=== PATIENT | male | born 1935 | race Caucasian/White ===

== ENCOUNTER → 2017-02-21 08:46 | Emergency (ER) | payer MEDICARE, BC ==
[~2017-02-21 08:46] MED LIST: Ibuprofen TAB* 600 MG PO ONE; Morphine INJ* 2 MG/ML 1 ML SYRINGE (TWO MG - NEW SYRINGE VERSION) IV ONE
[2017-02-21 08:54] VITALS: BP 144/94
--- NOTE | 2017-02-21 10:08 | RAD ---
INDICATION: Left knee pain. TECHNIQUE: 4 views of the left knee were obtained. FINDINGS: There is soft tissue swelling anterior to the patella. The bones are normal alignment. No joint effusion or fracture is seen. There is mild to moderate osteoarthritic change in the medial and patellofemoral compartments. IMPRESSION: 1. ANTERIOR SOFT TISSUE SWELLING. 2. MILD TO MODERATE OSTEOARTHRITIC CHANGE.
[2017-02-21 10:51] LABS: Hematocrit 39 % (42-52); Hemoglobin 12.9 g/dl (14.0-18.0); Mean Corpuscular HGB Conc 34 g/dl (31-36); Mean Corpuscular Hemoglobin 33 pg (27-31); Mean Corpuscular Volume 98 fL (80-94); Mean Platelet Volume 9 um3 (7.4-10.4); Red Blood Count 3.94 10^6/ul (4.0-5.4); Red Cell Distribution Width 13 % (10.5-15); White Blood Count 9.4 10^3/ul (3.5-10.8)
[2017-02-21 11:05] LABS: Albumin 3.6 g/dL (3.2-5.2); BUN/Creatinine Ratio 12.4 (8-20); Calcium 8.7 mg/dL (8.6-10.3); EGFR African American 105.5 (>60); Globulin 2.5 g/dL (2-4); Total Bilirubin 0.9 mg/dL (0.2-1.0); Total Protein 6.1 g/dL (6.4-8.9); Uric Acid 6.6 mg/dL (4.4-7.6)
--- NOTE | 2017-02-21 11:29 | ED ---
Lower Extremity - HPI Summary HPI Summary: 81 male presents with left knee pain that began 1-2 days ago and has been worsening. States it is also warm and swollen. Denies bruising, redness or any recent injury. Has not taken any medication for the pain. States pain is worse at rest or on palpation. Better with walking and movement. Has never had anything like this before. No Hx of gout. No numbness/tingling. Has not been bit by tick that he knows of, no other complaints at this time. No other joint aches. No PMHx. States if of course is feeling better than it did this morning, since he's been here. Able to bear weight and walk without difficulty. - History of Current Complaint Chief Complaint: EDExtremityLower Stated Complaint: LT KNEE PAIN Time Seen by Provider: 02/21/17 09:44 Hx Obtained From: Patient Mechanism Of Injury: Unknown Onset/Duration: Worse Since Severity Initially: Mild Severity Currently: Moderate Pain Intensity: 7 Pain Scale Used: 0-10 Numeric Timing: Constant Location: Is Discrete @ - left knee Character Of Pain: Sharp, Aching Associated Signs And Symptoms: Positive: Swelling, Knee Pain, Other - hot to touch Aggravating Factor(s): Other - rest, palpation Alleviating Factor(s): Other - movement Able to Bear Weight: Yes - Allergies/Home Medications Allergies/Adverse Reactions: Allergies Allergy/AdvReac Type Severity Reaction Status Date / Time Unable to Obtain Allergy Verified 02/21/17 08:51 PMH/Surg Hx/FS Hx/Imm Hx Cardiovascular History: Reports: Hx Hypercholesterolemia, Hx Hypertension, Other Cardiovascular Problems/Disorders - An aortic abnormality, unsure of dx Denies: Hx Myocardial Infarction Musculoskeletal History: Denies: Hx Osteoporosis Sensory History: Reports: Hx Contacts or Glasses Opthamlomology History: Reports: Hx Contacts or Glasses Infectious Disease History: Yes Infectious Disease History: Denies: Traveled Outside the [place] in Last 30 Days - Family History Known Family History: Positive: Cardiac Disease, Hypertension - Social History Alcohol Use: Occasionally Substance Use Type: Reports: None Smoking Status (MU): Former Smoker Type: Cigarettes Review of Systems Constitutional: Negative Cardiovascular: Negative Respiratory: Negative Positive: Arthralgia, Myalgia - left knee, Edema - left knee Skin: Negative All Other Systems Reviewed And Are Negative: Yes Physical Exam Triage Information Reviewed: Yes Vital Signs On Initial Exam: Initial Vitals Temp Pulse Resp BP Pulse Ox 97.7 F 80 17 144/94 98 02/21/17 08:46 02/21/17 08:46 02/21/17 08:46 02/21/17 08:46 02/21/17 08:46 Vital Signs Reviewed: Yes Appearance: Positive: Well-Appearing, No Pain Distress, Well-Nourished Skin: Positive: Warm, Skin Color Reflects Adequate Perfusion, Dry, Other - no ecchymosis, edema or sign of trauma. no erythema. hot to touch left knee. Negative: Cold, Numb, Cyanosis @, Pale, Erythema @ Head/Face: Positive: Normal Head/Face Inspection Eyes: Positive: Conjunctiva Clear ENT: Positive: Hearing grossly normal Neck: Positive: Supple, Nontender Respiratory/Lung Sounds: Positive: Clear to Auscultation, Breath Sounds Present. Negative: Rales, Rhonchi, Wheezes Cardiovascular: Positive: Normal, RRR, Pulses are Symmetrical in both Upper and Lower Extremities - 2+ pedal. Negative: Murmur, Rub Abdomen Description: Positive: Nontender, Soft Bowel Sounds: Positive: Present Musculoskeletal: Positive: Normal, Strength/ROM Intact, Pain @ - on palpation of anterior/lateral left knee, Edema Left - knee, mild when compared to right, Other - no ecchymosis, erythema or obvious deformity. warm to touch. Negative: Limited @, Interruption @ Neurological: Positive: Normal, Sensory/Motor Intact - normal, Alert, Oriented to Person Place, Time, NV Bundle Intact Distally, Normal Gait - Sakshi Coma Scale Coma Scale Total: 15 Diagnostics - Vital Signs Vital Signs Temp Pulse Resp BP Pulse Ox 02/21/17 08:46 97.7 F 80 17 144/94 98 - Laboratory Lab Results: Lab Results 02/21/17 02/21/17 Range/Units 10:35 10:35 WBC 9.4 (3.5-10.8) 10^3/ul RBC 3.94 L (4.0-5.4) 10^6/ul Hgb 12.9 L (14.0-18.0) g/dl Hct 39 L (42-52) % MCV 98 H (80-94) fL MCH 33 H (27-31) pg MCHC 34 (31-36) g/dl RDW 13 (10.5-15) % Plt Count 201 (150-450) 10^3/ul MPV 9 (7.4-10.4) um3 Neut % (Auto) 72.3 (38-83) % Lymph % (Auto) 17.5 L (25-47) % [place] % (Auto) 7.4 (1-9) % Eos % (Auto) 1.8 (0-6) % Baso % (Auto) 1.0 (0-2) % Absolute Neuts (auto) 6.8 (1.5-7.7) 10^3/ul Absolute Lymphs (auto) 1.6 (1.0-4.8) 10^3/ul Absolute Monos (auto) 0.7 (0-0.8) 10^3/ul Absolute Eos (auto) 0.2 (0-0.6) 10^3/ul Absolute Basos (auto) 0.1 (0-0.2) 10^3/ul Absolute Nucleated RBC 0 10^3/ul Nucleated RBC % 0 Sodium 136 (133-145) mmol/L Potassium 4.0 (3.5-5.0) mmol/L Chloride 106 (101-111) mmol/L Carbon Dioxide 26 (22-32) mmol/L Anion Gap 4 (2-11) mmol/L BUN 11 (6-24) mg/dL Creatinine 0.89 (0.67-1.17) mg/dL Est GFR ( Amer) 105.5 (>60) Est GFR (Non-Af Amer) 82.0 (>60) BUN/Creatinine Ratio 12.4 (8-20) Glucose 142 H (70-100) mg/dL Uric Acid 6.6 (4.4-7.6) mg/dL Calcium 8.7 (8.6-10.3) mg/dL Total Bilirubin 0.90 (0.2-1.0) mg/dL AST 15 (13-39) U/L ALT 15 (7-52) U/L Alkaline Phosphatase 86 (34-104) U/L Total Protein 6.1 L (6.4-8.9) g/dL Albumin 3.6 (3.2-5.2) g/dL Globulin 2.5 (2-4) g/dL Albumin/Globulin Ratio 1.4 (1-3) Result Diagrams: 02/21/17 10:35 02/21/17 10:35 Lab Statement: Any lab studies that have been ordered have been reviewed, and results considered in the medical decision making process. - Radiology left knee Xray Interpretation: Positive (See Comments) - 1. ANTERIOR SOFT TISSUE SWELLING. 2. MILD TO MODERATE OSTEOARTHRITIC CHANGE. Radiology Interpretation Completed By: Radiologist Lower Extremity Course/Dx - Course Course Of Treatment: xray obtained and showed joint effusion and some osteoarthritis. labs obtained, no sign of infection and normal uric acid. does appear to be anemic, unintentional findings. recommended eating iron rich foods and follow up lab work with PCP. not on blood thinners. appears patient may be suffering from gout versus joint effusion versus septic arthritis. Kojo bandage applied. Does not appear to need any draining at this time. Follow up ortho after trying symptomatic relief. Compression, rest, ice, elevate, refrain from use. NSAIDs. hold off on aspirin until d/c NSAIDs. Follow up pcp. Aware of worsening signs and symptoms to watch out for and return if occur. - Diagnoses Differential Diagnosis/HQI/PQRI: Positive: Arthritis, Contusion, Dislocation, Fracture (Closed), Gout, Infection, Septic Arthritis, Sprain, Strain Provider Diagnoses: Effusion of knee joint, left Discharge - Discharge Plan Condition: Stable Disposition: HOME Patient Education Materials: Swollen Knee Joint (ED), Osteoarthritis (ED) Referrals: Teagan Mistry MD [Primary Care Provider] - Ronny Platt MD [Medical Doctor] - Additional Instructions: Take ibuprofen 600mg every 6-8 hours for the next 3 days. Hold off on aspirin. Return to daily aspirin after. Make an appointment with orthopedics for further evaluation and imaging. Rest, ice, elevate and apply kojo bandage for compression. If symptoms worsen or do not improve please seek medical attention promptly, as discussed.
== END | disposition home or self-care (01) ==
LOC: ED 08:46
DX: M25.562 Pain in left knee (principal); M25.462 Effusion, left knee; R60.9 Edema, unspecified; Z87.891 Personal history of nicotine dependence
CPT/HCPCS: 36415; 80053; 84550; 85025; 99282; A9270-GY; J2270

== ENCOUNTER 2017-11-27 08:50 | Inpatient (IN) | payer MEDICARE, BC ==
--- NOTE | 2017-11-27 09:19 | ED ---
HPI Chest Pain - HPI Summary HPI Summary: This patient is an 82 year old M [facility] with a chief complaint of CP since 629. He was watering the garden and experienced CP , so he went inside. Pt started drinking coffee, which is when he experienced N/ V. He endorses the pain as dull currently. Took ASA last night. Endorses chronic peripheral edema. He denies SOB, lightheadedness. Denies nausea currently. PMHx HTN, ascending thoracic aneurysm. - History of Current Complaint Chief Complaint: EDChestPainROMI Time Seen by Provider: 11/27/17 09:05 Hx Obtained From: Patient Onset/Duration: Started Hours Ago, Still Present Timing: Constant, Lasting Hours Initial Severity: Moderate Current Severity: Moderate Pain Intensity: 7 Pain Scale Used: 0-10 Numeric Chest Pain Location: Diffuse - central chest Chest Pain Radiates: No Character: Dull/Aching Aggravating Factor(s): Exertion, Caffeine Alleviating Factor(s): Nothing Associated Signs and Symptoms: Positive: Chest Pain, Nausea, Vomiting, Edema. Negative: Shortness of Breath, Lightheadedness - Allergy/Home Medications Allergies/Adverse Reactions: Allergies Allergy/AdvReac Type Severity Reaction Status Date / Time No Known Allergies Allergy Verified 11/27/17 08:55 Home Medications: Home Medications Aspirin EC TAB* [Ecotrin EC Low Dose 81 MG*] 81 mg PO QPM 11/27/17 [History Confirmed 11/27/17] Ketoconazole 2 % CREAM (NF) [Nizoral 2% CREAM (NF)] 1 applic TOPICAL DAILY PRN 11/27/17 [History Confirmed 11/27/17] Labetalol TAB* [Trandate TAB*] 100 mg PO BID 11/27/17 [History Confirmed ] Lisinopril TAB* [Prinivil TAB*] 40 mg PO QPM 11/27/17 [History Confirmed ] Multivit-Min/Iron/Folic/Lutein [Centrum Silver Women Tablet] 1 each PO QAM 11/27 [History Confirmed 11/27/17] Rosuvastatin (NF) [Crestor (NF)] 5 mg PO WESA 11/27/17 [History Confirmed ] Torsemide TAB* [Demadex*] 10 mg PO QAM 11/27/17 [History Confirmed 11/27/17] amLODIPine TAB* [Norvasc 5 mg TAB*] 10 mg PO QAM 11/27/17 [History Confirmed 05/05] PMH/Surg Hx/FS Hx/Imm Hx Cardiovascular History: Reports: Hx Aneurysm - ascending thoracic aneurysm, Hx Hypercholesterolemia, Hx Hypertension Denies: Hx Myocardial Infarction Musculoskeletal History: Denies: Hx Osteoporosis Sensory History: Reports: Hx Contacts or Glasses Opthamlomology History: Reports: Hx Contacts or Glasses EENT History: Denies: Hx Deafness Infectious Disease History: No Infectious Disease History: Denies: Traveled Outside the [place] in Last 30 Days - Family History Known Family History: Positive: Cardiac Disease, Hypertension - Social History Occupation: Retired Lives: With Family Alcohol Use: Occasionally Substance Use Type: Reports: None Smoking Status (MU): Former Smoker Type: Cigarettes Review of Systems Negative: Fever Positive: Chest Pain Negative: Shortness Of Breath Positive: Vomiting, Nausea Positive: Edema Neurological: Other - NEGATIVE: lightheadedness All Other Systems Reviewed And Are Negative: Yes Physical Exam - Summary Physical Exam Summary: Appearance: The patient is well-nourished in no acute distress and in no acute pain. Skin: The skin is warm and dry and skin color reflects adequate perfusion. HEENT: The head is normocephalic and atraumatic. The pupils are equal and reactive. The conjunctivae are clear and without drainage. Nares are patent and without drainage. Mouth reveals moist mucous membranes and the throat is without erythema and exudate. The external ears are intact. The ear canals are patent and without drainage. The tympanic membranes are intact. Neck: The neck is supple with full range of motion and non-tender. There are no carotid bruits. There is no neck vein distension. Respiratory: Chest is non-tender. Lungs are clear to auscultation and breath sounds are symmetrical and equal. Cardiovascular: Heart is regular rate and rhythm. There is no murmur or rub auscultated. There is bilateral peripheral pitting edema in lower legs. Pulses are symmetrical and equal. Abdomen: The abdomen is soft and non-tender. There are normal bowel sounds heard in all four quadrants and there is no organomegaly palpated. Musculoskeletal: There is no back tenderness noted. Extremities are non-tender with full range of motion. There is good capillary refill. There is bilateral peripheral pitting edema in lower legs. No calf tenderness elicited. Neurological: Patient is alert and oriented to person, place and time. The patient has symmetrical motor strength in all four extremities. Cranial nerves are grossly intact. Deep tendon reflexes are symmetrical and equal in all four extremities. Psychiatric: The patient has an appropriate affect and does not exhibit any anxiety or depression. Triage Information Reviewed: Yes Vital Signs On Initial Exam: Initial Vitals Temp Pulse Resp BP Pulse Ox 97.1 F 58 19 146/82 98 11/27/17 08:53 11/27/17 08:53 11/27/17 08:53 11/27/17 08:53 11/27/17 08:53 Vital Signs Reviewed: Yes Diagnostics - Vital Signs Vital Signs Temp Pulse Resp BP Pulse Ox 11/27/17 08:59 63 172/99 97 11/27/17 08:53 97.1 F 58 19 146/82 98 - Laboratory Result Diagrams: 11/27/17 09:18 11/27/17 09:18 Lab Statement: Any lab studies that have been ordered have been reviewed, and results considered in the medical decision making process. - Radiology CXR Xray Interpretation: No Acute Changes Radiology Interpretation Completed By: Radiologist - No active cardiopulmonary disease. - CT CTA chest CT Interpretation: Positive (See Comments) CT Interpretation Completed By: Radiologist - 1. ANEURYSMAL DILATATION OF THE ASCENDING THORACIC AORTA UP TO 4.3 CM TRANSVERSELY WITHOUT INTERVAL FLAP TO SUGGEST DISSECTION. 2. ATHEROSCLEROSIS. 3. PANCREATIC CALCIFICATIONS WITH PERIPANCREATIC INFLAMMATORY CHANGE SUGGESTIVE OF ACUTE ON CHRONIC PANCREATITIS Dr. Zheng has reviewed this report. - EKG 0904 Cardiac Rate: NL - 59 EKG Rhythm: Sinus Rhythm ST Segment: Normal EKG Interpretation: Left axis deviation Chest Pain Course/Dx - Course Course Of Treatment: Mr. Nixon presented to the emergency department with a complaint of the sudden onset of chest pain while he was out watering his garden and was somewhat improved with rest but continued and he presented with his . He reports only a history of hypertension and high cholesterol. He does say that he sees Dr. Moore for something wrong with his aorta. His vitals were good here and his EKG unchanged. Dr. Moore was contacted to clear up what was going on with his aorta and reports that he has a 4 cm ascending aortic aneurysm. He is also had pancreatitis in the past. A CT was obtained which showed no change in his aneurysm. His lipase returned quite elevated and he was admitted diagnosis of pancreatitis. - Diagnoses Provider Diagnoses: Pancreatitis - Provider Notifications Discussed Care Of Patient With: Subha Moore Time Discussed With Above Provider: 10:00 Instructed by Provider To: Other - consult about PMHx, as pt unable to produce name of dx. Dx ascendic thoracic aneurysm. - Critical Care Time Critical Care Time: 30-74 min Discharge - Sign-Out/Discharge Documenting (check all that apply): Patient Departure - admit - Discharge Plan Condition: Fair Disposition: ADMITTED TO [facility] - Billing Disposition and Condition Condition: FAIR Disposition: Admitted to [facility] Consult Consult: [phone] Domínguez, who accepts pt for admission to [facility].
[2017-11-27 09:34] LABS: ABS Basophils 0 10^3/ul (0-0.2); ABS Eosinophils 0.1 10^3/ul (0-0.6); ABS Lymphocytes 1.4 10^3/ul (1.0-4.8); ABS Monocytes 0.5 10^3/ul (0-0.8); ABS Neutrophils 5.9 10^3/ul (1.5-7.7); ABS Nucleated RBC 0 10^3/ul; Eosinophil % 1.8 % (0-6); Hematocrit 41 % (42-52); Hemoglobin 14.1 g/dl (14.0-18.0); Lymphocyte % 17.6 % (25-47); Mean Corpuscular HGB Conc 34 g/dl (31-36); Mean Corpuscular Hemoglobin 34 pg (27-31); Mean Corpuscular Volume 98 fL (80-94); Mean Platelet Volume 8.8 um3 (7.4-10.4); Nucleated Red Blood Cells % 0; Platelet Count 169 10^3/ul (150-450); Red Blood Count 4.21 10^6/ul (4.00-5.40); Red Cell Distribution Width 13 % (10.5-15); White Blood Count 7.9 10^3/ul (3.5-10.8)
[2017-11-27] MEDS ORDERED: Aspirin TAB* 325 MG PO ONE (09:36)
[2017-11-27] MEDS ORDERED: Nitroglycerin TAB 0.4 MG* 0.4 MG TAB SL ONE (09:36)
[2017-11-27 09:51] LABS: EGFR Non-African American 62.8 (>60)
[2017-11-27] MEDS ORDERED: Iodixanol* (CONTRAST) 320 MG/ML 100 ML SDV IV ONE (09:56)
--- NOTE | 2017-11-27 10:10 | RAD ---
HISTORY: chest pain COMPARISONS: November 22, 2016 VIEWS: 1: frontal portable view of the chest at 9:40 AM FINDINGS: LINES AND TUBES: None. CARDIOMEDIASTINAL SILHOUETTE: The aorta is tortuous. The cardiomediastinal silhouette is otherwise normal for portable technique. PLEURA: The costophrenic angles are sharp. No pleural abnormalities are noted. LUNG PARENCHYMA: The lungs are clear. ABDOMEN: The upper abdomen is clear. There is no subphrenic gas. BONES AND SOFT TISSUES: No bone or soft tissue abnormalities are noted. IMPRESSION: NO ACTIVE CARDIOPULMONARY DISEASE.
--- NOTE | 2017-11-27 11:16 | RAD ---
HISTORY: dissection/aneurysm COMPARISONS: January 17, 2015 TECHNIQUE: Multiple contiguous axial CT scans of the chest were obtained after the administration of nonionic intravenous contrast, timed to the systemic arterial phase of contrast enhancement.. Coronal and sagittal multiplanar reformations are also submitted for review. 3-D volumetric reconstructions of the aorta are also submitted for review. FINDINGS: NECK AND THYROID: The lower neck and thyroid are unremarkable. CHEST WALL: There is no lower cervical, axillary, or supraclavicular lymphadenopathy by size criteria. There is bilateral gynecomastia. HEART AND PERICARDIUM: Coronary artery calcifications are noted. AORTA AND PULMONARY VASCULATURE: There is mild residual dilatation of ascending thoracic aorta up to 4.3 cm in transverse dimension. There is sparing of the aortic root. There is no intimal flap to suggest dissection. There is mild calcific atherosclerotic disease of aorta. The pulmonary vasculature is normal for technique MEDIASTINUM: There is no mediastinal lymphadenopathy by size criteria. BRITNI: There is no hilar lymphadenopathy by size criteria. AIRWAY AND ESOPHAGUS: The airway is unremarkable, without endobronchial filling defect. The esophagus is grossly normal. LUNG PARENCHYMA: The lungs are clear. PLEURA: No pleural abnormalities are noted. UPPER ABDOMEN: There is peripancreatic inflammatory change, with multiple microcalcifications. BONES AND SOFT TISSUES: No bone or soft tissue abnormalities are noted. OTHER: None. IMPRESSION: 1. ANEURYSMAL DILATATION OF THE ASCENDING THORACIC AORTA UP TO 4.3 CM TRANSVERSELY WITHOUT INTERVAL FLAP TO SUGGEST DISSECTION. 2. ATHEROSCLEROSIS. 3. PANCREATIC CALCIFICATIONS WITH PERIPANCREATIC INFLAMMATORY CHANGE SUGGESTIVE OF ACUTE ON CHRONIC PANCREATITIS
[2017-11-27] MEDS ORDERED: Morphine INJ* 10 MG/ML 1 ML CARPUJECT IV PRN (11:53)
[2017-11-27] MEDS ORDERED: Acetaminophen TAB* 325 MG PO PRN (11:53)
--- NOTE | 2017-11-27 13:16 | RAD ---
HISTORY: pancreatitis, eval CBD and gall bladder COMPARISONS: January 17, 2015 TECHNIQUE: Multiple transverse and longitudinal ultrasound images were obtained of the right upper quadrant of the abdomen using grayscale, color Doppler, and spectral Doppler imaging. FINDINGS: LIVER: The liver is diffusely echogenic and coarse in echotexture, with decreased acoustic transmission. There is focal fatty sparing at the level of the gallbladder fossa. The liver measures 21 cm in long axis. There is normal hepatopedal flow of the portal vein on Doppler imaging. BILIARY TREE: There is no intrahepatic or extrahepatic biliary dilatation. The common duct measures 0.3 cm. GALLBLADDER: The gallbladder is well-visualized. There is no cholelithiasis, gallbladder wall thickening, pericholecystic fluid, or sonographic Kitchen sign. PANCREAS: Evaluation of the pancreas is limited by overlying bowel gas. There is dilatation of intrahepatic duct. RIGHT KIDNEY: There is persistent lobulation. There is no hydronephrosis or nephrolithiasis. The right kidney measures 12.1 x 5.3 x 5.1 cm. AORTA AND IVC: The aorta and IVC are unremarkable. FLUID: There are no pleural effusions. There is no free fluid within the hepatorenal recess. OTHER FINDINGS: None. IMPRESSION: 1. HEPATOMEGALY WITH FATTY INFILTRATION OF THE LIVER. 2. DILATED PANCREATIC DUCT. EVALUATION OF THE PANCREAS IS LIMITED BY OVERLYING BOWEL GAS ON SONOGRAPHY. IF THERE IS PERSISTENT CLINICAL CONCERN FOR PANCREATIC PATHOLOGY, CONSIDER FURTHER EVALUATION WITH CONTRAST-ENHANCED CT OR MRI OF THE ABDOMEN.
--- NOTE | 2017-11-27 13:52 | HP ---
CC: Dr. Mistry * DATE OF ADMISSION: 11/27/2017. ATTENDING PHYSICIAN: Dr. Bob Domínguez * (dictation provided by Zhane Hunter NP ). CHIEF COMPLAINT: Chest pain. HISTORY OF PRESENT ILLNESS: Mr. Nixon is an 82-year-old male with a past medical history of hypertension, hyperlipidemia, diet controlled diabetes, and a stable 4.4 cm ascending aortic aneurysm who presented to the hospital today with concern for chest pain. Mr. Nixon states that he has been in his normal state of health with no complaints. He is very active. He states he was out today working in his yard when he developed the sudden onset of left-sided chest pain. When I ask him for a further description he says, "I don't know, it was just pain." He had no associated shortness of breath or diaphoresis. He put away his tools and went in his home where he drank a cup of coffee. Immediately on finishing the coffee, he had nausea and vomiting times one. He left the house with the intention of traveling to do some car repairs, but about half-way from home he had sharp stabbing chest pain and decided to come to the hospital for evaluation instead. He states he has never had pain like this before. He denies any abdominal pain. Other than the one bout of nausea and vomiting today, he has had no other nausea or vomiting. He has had normal formed bowel movements. He has no known history of pancreatitis. No known history of gallbladder disease. In the emergency room, Mr. Nixon had a troponin which was 0. An EKG showed sinus bradycardia with no evidence of ischemia. He went to the bathroom prior to going to the CT abdomen and pelvis at which time he had what he described as a syncopal episode in which he leaned over the sink and has no memory of several moments. On awakening, he called for help and was assisted back into bed. He did not fall or sustain any injury. He had further labs which showed lipase of 1,227. On review of a previous chest and abdomen CT from 2014, it is noted that the patient had evidence of chronic pancreatitis. On the chest/ thorax CTA today, which was obtained to evaluate his aortic aneurysm, it showed no change to the aneurysm or dissection, but did show evidence of acute on chronic pancreatitis. On examination, he has pain with palpation in the mid to right abdomen. PAST MEDICAL HISTORY: 1. Hypertension. 2. Hyperlipidemia. 3. Report of chronic pancreatitis noted on 2015 CT abdomen. 4. Dilated ascending aortic aneurysm of 4.4 cm. 5. Diet controlled diabetes. 6. History of tonsillectomy as a child. MEDICATIONS: 1. Amlodipine 10 mg p.o. q.a.m. 2. Ketoconazole cream prn. 3. Lisinopril 40 mg p.o. q.a.m. 4. Multivitamin one tab p.o. daily. 5. Rosuvastatin 5 mg p.o. q. Friday and Friday. 6. Torsemide 10 mg p.o. q.a.m. 7. Aspirin 81 mg p.o. q.p.m. 8. Labetalol 100 mg p.o. b.i.d. ALLERGIES: No known drug allergies. FAMILY HISTORY: The patient states his father in a car accident in his 80s. His mother in her 70s related to a heart attack. SOCIAL HISTORY: The patient quit smoking in 1961. He drinks approximately one beer or less per day. There is no prior drug use. He states his in the healthcare proxy. REVIEW OF SYSTEMS: A 14 point review of systems is completed with Mr. Nixon and all as not mentioned above were negative. PHYSICAL EXAMINATION GENERAL: Mr. Nixon is lying in the bed. He is in no acute distress. His is at the bedside. VITAL SIGNS: Temperature 97.1, pulse rate 52, respiratory rate 15, O2 saturation 98 percent on room air, blood pressure 140/75. I will note that after being assisted into bed after the reported syncopal episode, his blood pressure was 94/68. He has received a liter of IV fluids and it is now 140/75. LUNGS: Clear to auscultation bilaterally. No accessory muscle use and good aeration. HEART: S1, S2.n murmur, rub or gallop and regular. ABDOMEN: Soft. It is tender in the mid to right upper quadrants. There are bowel sounds positive times four. EXTREMITIES: No cyanosis or edema. SKIN: Intact. NEUROLOGIC: He is alert, he is oriented times three. He moves all extremities equally. There is no facial asymmetry or focal weakness. Extraocular movements are intact. LABORATORY DATA: Sodium 141, potassium 3.9, chloride 106, serum bicarbonate 26 , BUN 14, creatinine 1.12, glucose 190, calcium 8.9, total bili 1.2, AST 19, ALT 15, troponin 0.00, lipase 1,27; WBC 7.9, hemoglobin 14.1, hematocrit 41. Lipid profile is pending. EKG shows bradycardia with heart rate in the 50s. Chest x-ray shows no acute process. Chest/thorax CTA shows aneurysmal dilatation of the ascending thoracic aorta up to 4.3 cm transversely without interval flap to suggest dissection; atherosclerosis; pancreatic calcifications with peripancreatic inflammatory change suggestive of acute on chronic pancreatitis. ASSESSMENT: Mr. Nixon is an 82-year-old male with a past medical history of hypertension, hyperlipidemia, and thoracic aortic aneurysm who presents today to the hospital with concern for chest pain, found to have acute on chronic pancreatitis. Our plans are for observation in the hospital for the followin. Acute on chronic pancreatitis: As far back as 2014, the patient showed evidence of chronic pancreatitis on CT of the abdomen. However, he has never had any reported history of pain or complications suggestive of pancreatitis. It appears that the chest pain he is describing today is likely related to pancreatitis. He is tender to palpation in the right upper quadrant. In terms of etiology, the patient is only a light beer drinker which makes that seems less likely to be contributing. His most recent triglyceride level from 2017 was only 138, so that is also unlikely to be contributing either. He has no history of known gallstones, plan to checki an ultrasound of the abdomen now to evaluate the common bile duct and the gallbladder. We can proceed with further work-up as needed, especially to consider ruling out malignancy with CT with pancreas protocol if no other etiology is not confirmed. At this point, he appears to be having a mild to moderate exacerbation as he did have transient hypotension that resolved with IVF. The patient did have an episode of syncope in the ED which is of course concerning. Will continue with intravenous fluids and telemetry monitoring. He will be NPO except for ice chips. Plan to recheck lipase in AM. 2. Syncope: It think this is related to his pancreatitis. Will continue with telemetry monitoring. He will have IV fluids as noted above. 3. Hypertension: Plan to hold Lisinopril, Amlodipine, and Torsemide. Will continue Labetalol as tolerated with hold parameters to avoid any rebound hypertension, tachycardia. 4. Type 2 diabetes: The patient has diet-controlled, but will check blood glucose q.a.c. during this episode of pancreatitis, will check q.8 hours with an instruction to call for a BG greater than 200. 5. Aortic aneurysm: Stable. 6. Hyperlipidemia: Lipid profile is pending. Continue Rosuvastatin. 7. Code status: Full code. 8. DVT prophylaxis: Heparin subcu. Approximately 60 minutes were spent in the admission of this patient, more than half that time was spent with the patient at the bedside reviewing the events leading up to this hospitalization, performing the physical exam, and reviewing my plan of care. ZHANE HUNTER NP [id number]/[facility] #: [id number] QUAN
[2017-11-27] MEDS: NS 0.9% 1000 ML* 1,000 ML IV SCH ×2 (14:30→23:39)
[2017-11-27] MEDS: Heparin VIAL(*) 5000 UNITS/ML VIAL (FIVE THOUSAND) SUBCUT SCH ×2 (14:34→21:28)
[2017-11-27] MEDS ORDERED: Ondansetron INJ* 2 MG/ML VIAL IV PRN (14:59)
[2017-11-27] MEDS ORDERED: Ondansetron INJ* 2 MG/ML VIAL ONE (15:03)
[2017-11-27] MEDS: Aspirin EC TAB* 81 MG TAB.EC PO SCH (18:43)
[2017-11-27] MEDS ORDERED: HYDROmorphone INJ* 0.5 MG/0.5 ML SYRINGE IV SLOW PU PRN (18:54)
[2017-11-27] MEDS: Labetalol TAB* 100 MG PO SCH (21:27)
[2017-11-28] MEDS: Heparin VIAL(*) 5000 UNITS/ML VIAL (FIVE THOUSAND) SUBCUT SCH ×3 (06:01→22:49)
[2017-11-28 07:01] LABS: EGFR Non-African American 80.8 (>60)
[2017-11-28] MEDS: NS 0.9% 1000 ML* 1,000 ML IV SCH ×3 (07:21→22:49)
[2017-11-28] MEDS: Labetalol TAB* 100 MG PO SCH ×2 (07:27→20:27)
--- NOTE | 2017-11-28 10:46 | PN ---
Subjective Date of Service: 11/28/17 Interval History: Pt feels much better. Started on clears today AM and tolerating it well. Epigastric pain still present when moving, but none when laying down Objective Active Medications: Acetaminophen (Tylenol Tab*) 650 mg PO Q6H PRN PRN Reason: PAIN Last Admin: 11/27/17 18:42 Dose: 650 mg Aspirin (Aspirin Ec Tab*) 81 mg PO QPM [facility] Last Admin: 11/27/17 18:43 Dose: 81 mg Heparin Sodium (Porcine) (Heparin Vial(*)) 5,000 units SUBCUT Q8HR [facility] Last Admin: 11/28/17 06:01 Dose: 5,000 units Hydromorphone HCl (Dilaudid Inj*) 0.5 mg IV SLOW PU Q4H PRN PRN Reason: PAIN Last Admin: 11/28/17 07:26 Dose: 0.5 mg Sodium Chloride (Ns 0.9% 1000 Ml*) 1,000 mls @ 50 mls/hr IV PER RATE [facility] Labetalol HCl (Trandate Tab*) 100 mg PO BID [facility] Last Admin: 11/28/17 07:27 Dose: 100 mg Morphine Sulfate (Morphine Inj (Syringe)*) 5 mg IV Q4H PRN PRN Reason: PAIN Ondansetron HCl (Zofran Inj*) 4 mg IV Q6H PRN PRN Reason: NAUSEA Last Admin: 11/27/17 15:07 Dose: 4 mg Vital Signs - 8 hr 11/28/17 11/28/17 11/28/17 03:25 07:21 07:26 Temperature 98.6 F 98.4 F Pulse Rate 73 71 Respiratory 20 20 18 Rate Blood Pressure 122/38 145/78 (mmHg) O2 Sat by Pulse 98 96 Oximetry 11/28/17 08:55 Temperature Pulse Rate Respiratory 16 Rate Blood Pressure (mmHg) O2 Sat by Pulse Oximetry Oxygen Devices in Use Now: None Appearance: 82 yo M in nAD, aAOx3 Eyes: No Scleral Icterus, PERRLA Ears/Nose/Mouth/Throat: NL Teeth, Lips, Gums, Mucous Membranes Moist Neck: NL Appearance and Movements; NL JVP, Trachea Midline Respiratory: Symmetrical Chest Expansion and Respiratory Effort, Clear to Auscultation Cardiovascular: NL Sounds; No Murmurs; No JVD, RRR Abdominal: - - tender in epigastrium, no rebound, BS+ Extremities: No Clubbing, Cyanosis, - - trace ankle edema b/l Skin: No Rash or Ulcers, No Nodules or Sclerosis Neurological: Alert and Oriented x 3, NL Muscle Strength and Tone Result Diagrams: 11/27/17 09:18 11/28/17 05:26 Assess/Plan/Problems-Billing Assessment: 82 yo M with h/o HTN, dyslipidemia, remote ETOH abuse presents with epigastric pain and nausea, dx of acute pancratitis - Patient Problems (1) Acute pancreatitis Comment: CT shows pancreatic calcifications and dialted pancreatic duct. will get MRCP Asked Dr. Baker to see pt in consult Resolving, but still significant epigastric tenderness. will lower IVF and cont clears for diet So far etiology not identified: no recent ETOH, no med changes, triglycerides not elevated, no gallbladder pathology noted. (2) HTN (hypertension) Comment: controlled cont Labetalol, Norvasc held, torsemide held (rare reports of it torsemide causing pancreatitis noted) (3) DVT prophylaxis Comment: HSQ Status and Disposition: due to significant abd tenderness will cont to monitor x 24H, palce pt on inpatient
[2017-11-28] MEDS ORDERED: Gadoteridol* (CONTRAST) 279.3 MG/ML 10 ML IV ONE (15:25)
--- NOTE | 2017-11-28 16:34 | RAD ---
Indication: Epigastric pain, nausea and vomiting. Pain with palpation in the mid to RIGHT abdomen. Question recurrent pancreatitis and pancreatic duct dilatation. Comparison: November 27, 2017 CT chest. November 27, 2017 RIGHT upper quadrant ultrasound. Technique: [employer]a 1.5 Mary Jane [id number] with GEM suite. MRI abdomen with 20 mL IV ProHance contrast. Multiphasic postcontrast series. MRCP performed. Report: Trace perihepatic ascites. Negative for focal hepatic lesions. Negative for intra or extrahepatic biliary dilatation. No filling defects are identified within the common bile duct to indicate common bile duct stones. Unremarkable normally distended gallbladder. Mildly dilated 4.5 mm diameter pancreatic duct. 0.9 cm nonenhancing T2 hyperintense dilated pancreatic duct side branch at the tail. Advanced atrophy of the pancreas. Mild peripancreatic inflammatory change at the level of the pancreatic head and uncinate process favoring acute pancreatitis in the appropriate clinical setting. Only trace retroperitoneal peripancreatic fluid present. No loculated peripancreatic fluid collection evident. Unremarkable spleen. 4 cm cortical cyst lower pole LEFT kidney. Adjacent smaller cortical cyst at the LEFT kidney. Negative for hydronephrosis. Unremarkable adrenal glands. IMPRESSION: #. Atrophic pancreas with stigmata of chronic pancreatitis based on correlation with CT documenting multiple pancreatic calcifications. #. Stigmata of superimposed acute pancreatitis with peripancreatic inflammatory change at the level pancreatic head and uncinate process. #. Small volume of nonloculated peripancreatic fluid. #. No suspicious focal pancreatic lesions evident. #. Negative for biliary dilatation or evidence for a common bile duct stone. #. Trace perihepatic ascites.
[2017-11-28] MEDS: Aspirin EC TAB* 81 MG TAB.EC PO SCH (17:21)
--- NOTE | 2017-11-28 20:45 | CONS ---
GASTROENTEROLOGY CONSULTATION: DATE: 11/28/17 REFERRING PHYSICIAN: Teagan Mistry MD. 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 He developed chest or upper abdominal pain abruptly on 11/27 while working in his yard. It was severe from the start and he had emesis x 1 after coffee. He could not really give any specificity to the pain. It was poorly localized in the chest / upper abdomen, possibly a little bit more to the left. He did vomit. There was no fever. He came to the emergency room. Initially, he was worked up for chest pain. His trop was zero and lipase came back 1227. LFTs normal He says again he has never had anything like this before and his confirms that he has never really been one to have a sensitive stomach or have trouble with any particular foods. Dr Mistry / Chris who followed him for many years never worked him up for any particular GI problem. He had pancreatic calcifications seen on a 2014 CT, which included the chest and abdomen. That was done to follow a thoracic aortic aneurysm. 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 There is no family history of pancreatitis. He knows his cholesterol has been followed closely, but does not think his triglycerides have been a problem and indeed, all values are under 150 on 10 values since 2010. PAST MEDICAL HISTORY: 1. Thoracic aneurysm. 2. Hypertension. 3. Diet controlled diabetes. 4. Hypercholesterolemia. 5. History of tonsillectomy. FAMILY HISTORY: His father in a car accident, but was in his 80s at that time. His mother had a heart attack in her 70s. SOCIAL HISTORY: He has been 47 years. 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 He is a nonsmoker. REVIEW OF SYSTEMS: He denies any trauma to the upper abdomen. He has never had any abdominal surgery. There is no history of seizure, CVA, TIA, fainting, palpitations, exertional chest pain, or hematuria. He denies any rash. He has had a couple of colonoscopies showing polyps, last exam in November 2010. PHYSICAL EXAM: He is a moderately overweight, robustly built older man, appearing vigorous and younger than stated age. HEENT exam shows no icterus. He has no adenopathy. His lungs are clear and heart sounds are normal. The abdomen is symmetric, protuberant, with normal bowel sounds, firm but not hard, and without any tenderness at this time. Rectal is deferred. Extremities show no edema. LABORATORY DATA: On admission, white count 7.9, hemoglobin 14.1, hematocrit 41 , platelets 169,000. BUN 13, creatinine 0.9. Bilirubin 1.20, ALT 15. CRP 19.15. Lipase 1227, down to 195 the next day. IMAGING: Right upper quadrant ultrasound did not show any gallstones. There is fatty liver with some hepatomegaly; common duct 3 mm; dilated pancreatic duct , millimeters not stated. MRCP - no focal mass lesion in the pancreas. The pancreas is atrophic. IMPRESSION: An initial episode of pancreatitis in an 82-year-old man without any obvious provocative dietary or medication triggers. He had chronic pancreatic calcifications in 2014 seen again as part of yesterdays CT chest. Most likely they are related to remote alcohol abuse, though it is certainly unusual that he never had any gastrointestinal symptoms of even moderate degree. He could have some scarring of the pancreatic duct but why now after many yrs of no abuse that would lead to an acute event is unclear. There is certainly no suggestion of a fat laden meal For the moment, he is improving on conservative treatment and counseling him on a prudent low fat diet and monitoring any recurring symptoms closely would appear to be all that is indicated. Empiric ursodiol or endoscopic ultrasound seem premature. He has had a good amount of imaging to detect anything overt that should be responded to and at this time, no set repeat imaging appears obligatory. [id number]/[facility] #: [id number] [facility]
[2017-11-29 05:24] LABS: ABS Basophils 0 10^3/ul (0-0.2); ABS Eosinophils 0 10^3/ul (0-0.6); ABS Lymphocytes 1.3 10^3/ul (1.0-4.8); ABS Monocytes 1.2 10^3/ul (0-0.8); ABS Neutrophils 12.2 10^3/ul (1.5-7.7); ABS Nucleated RBC 0 10^3/ul; Eosinophil % 0.2 % (0-6); Hematocrit 36 % (42-52); Hemoglobin 12.1 g/dl (14.0-18.0); Mean Corpuscular HGB Conc 34 g/dl (31-36); Mean Corpuscular Hemoglobin 33 pg (27-31); Mean Corpuscular Volume 98 fL (80-94); Mean Platelet Volume 8.9 um3 (7.4-10.4); Nucleated Red Blood Cells % 0; Platelet Count 144 10^3/ul (150-450); Red Blood Count 3.63 10^6/ul (4.00-5.40); Red Cell Distribution Width 13 % (10.5-15); White Blood Count 14.8 10^3/ul (3.5-10.8)
[2017-11-29] MEDS: Heparin VIAL(*) 5000 UNITS/ML VIAL (FIVE THOUSAND) SUBCUT SCH ×3 (05:24→21:51)
[2017-11-29 05:41] LABS: EGFR Non-African American 88.7 (>60)
[2017-11-29] MEDS: Labetalol TAB* 100 MG PO SCH ×2 (08:18→20:16)
[2017-11-29 09:55] LABS: Urine Appearance Clear; Urine Blood 1+ (Negative); Urine Color Yellow; Urine Ketones Negative (Negative); Urine Protein Negative (Negative); Urine Red Blood Cell Trace(0-2/hpf) (Absent); Urine Specific Gravity 1.006 (1.010-1.030); Urine Urobilinogen Negative (Negative); Urine White Blood Cell Absent (Absent)
--- NOTE | 2017-11-29 11:20 | PN ---
Subjective Date of Service: 11/29/17 Interval History: Patient's pain again decreased in intensity. Denies CP, SOB, N/V, dysuria, cough , SOB, history of UTI, BM, or other pain. Discussed other possible causes of pancreatitis such as viral infection or toxins and no other cause of pancreatitis was identified. Family History: Unchanged from Admission Social History: Unchanged from Admission Past Medical History: Unchanged from Admission Objective Active Medications: Acetaminophen (Tylenol Tab*) 650 mg PO Q6H PRN PRN Reason: PAIN Last Admin: 11/27/17 18:42 Dose: 650 mg Aspirin (Aspirin Ec Tab*) 81 mg PO QPM [facility] Last Admin: 11/28/17 17:21 Dose: 81 mg Heparin Sodium (Porcine) (Heparin Vial(*)) 5,000 units SUBCUT Q8HR [facility] Last Admin: 11/29/17 05:24 Dose: 5,000 units Hydromorphone HCl (Dilaudid Inj*) 0.5 mg IV SLOW PU Q4H PRN PRN Reason: PAIN Last Admin: 11/28/17 07:26 Dose: 0.5 mg Sodium Chloride (Ns 0.9% 1000 Ml*) 1,000 mls @ 50 mls/hr IV PER RATE [facility] Last Admin: 11/28/17 22:49 Dose: 50 mls/hr Labetalol HCl (Trandate Tab*) 100 mg PO BID [facility] Last Admin: 11/29/17 08:18 Dose: 100 mg Morphine Sulfate (Morphine Inj (Syringe)*) 5 mg IV Q4H PRN PRN Reason: PAIN Ondansetron HCl (Zofran Inj*) 4 mg IV Q6H PRN PRN Reason: NAUSEA Last Admin: 11/27/17 15:07 Dose: 4 mg Vital Signs - 8 hr 11/29/17 11/29/17 11/29/17 04:50 07:15 08:00 Temperature 99.4 F 99.8 F Pulse Rate 74 Respiratory 18 18 Rate Blood Pressure 145/78 (mmHg) O2 Sat by Pulse 95 Oximetry Oxygen Devices in Use Now: None Appearance: Patient is an 82yo male who appears stated age and is sitting in the bed in NAD. Eyes: No Scleral Icterus, PERRLA Ears/Nose/Mouth/Throat: NL Teeth, Lips, Gums, Clear Oropharnyx, Mucous Membranes Moist Neck: NL Appearance and Movements; NL JVP, Trachea Midline Respiratory: Symmetrical Chest Expansion and Respiratory Effort, Clear to Auscultation Cardiovascular: RRR, No Edema, - - Grade 2/6 JENNY. Abdominal: No Hepatosplenomegaly, - - Slight tenderness to palpation in Upper quadrants. Lymphatic: No Cervical Adenopathy Extremities: No Edema, No Clubbing, Cyanosis Skin: No Rash or Ulcers, No Nodules or Sclerosis Neurological: Alert and Oriented x 3, NL Sensation, NL Muscle Strength and Tone , - - CN II-XII intact. Result Diagrams: 11/29/17 04:48 11/29/17 04:48 Assess/Plan/Problems-Billing Assessment: 82 yo M with h/o HTN, dyslipidemia, remote ETOH abuse presents with epigastric pain and nausea, dx of acute on chronic pancratitis - Patient Problems (1) Acute pancreatitis Current Visit: Yes Status: Acute Code(s): K85.90 - ACUTE PANCREATITIS WITHOUT NECROSIS OR INFECTION, UNSP SNOMED Code(s): 902008015 Comment: CT shows pancreatic calcifications and dialted pancreatic duct. MRCP shows no gallstones and dilated pancreatic duct. Appreciate GI recommendation. Resolving, Improved abdominal pain. So far etiology not identified: no recent ETOH, no med changes, triglycerides not elevated, no gallbladder pathology noted. (2) HTN (hypertension) Current Visit: Yes Status: Acute Code(s): I10 - ESSENTIAL (PRIMARY) HYPERTENSION SNOMED Code(s): 77603953 Comment: Controlled Cont Labetalol, Norvasc held, torsemide held (rare reports of it torsemide causing pancreatitis noted) (3) Leukocytosis Current Visit: Yes Status: Acute Code(s): D72.829 - ELEVATED WHITE BLOOD CELL COUNT, UNSPECIFIED SNOMED Code(s): 608680522 Comment: With slight temperature elevation. No empiric Antibiotics. Will Check Blood and urine cultures. No Rash, CTA chest shows no pneumonia. (4) HLD (hyperlipidemia) Current Visit: Yes Status: Acute Code(s): E78.5 - HYPERLIPIDEMIA, UNSPECIFIED SNOMED Code(s): 58548520 Comment: LDL cholesterol WNL not on medications. (5) DMII (diabetes mellitus, type 2) Current Visit: Yes Status: Acute Comment: Diet controlled. Predisposed due to chronic pancreatitis. (6) Thoracoabdominal aortic aneurysm (TAAA) Current Visit: Yes Status: Acute Code(s): I71.6 - THORACOABDOMINAL AORTIC ANEURYSM, WITHOUT RUPTURE SNOMED Code(s): 597727563 Comment: Stable, no Dissection on CTA. Continue labatalol and attempt to avoid large swings in Blood Pressure. (7) DVT prophylaxis Current Visit: Yes Status: Acute Code(s): CPO0060 - SNOMED Code(s): 761535422 Comment: HSQ (8) Full code status Current Visit: Yes Status: Acute Code(s): Z78.9 - OTHER SPECIFIED HEALTH STATUS SNOMED Code(s): 566768753 Status and Disposition: Inpatient for Pancreatitis.
[2017-11-29] MEDS ORDERED: oxyCODONE TAB* 5 MG TAB PO PRN (11:30)
[2017-11-29] MEDS: Aspirin EC TAB* 81 MG TAB.EC PO SCH (17:46)
[2017-11-30] MEDS: Heparin VIAL(*) 5000 UNITS/ML VIAL (FIVE THOUSAND) SUBCUT SCH (05:09)
[2017-11-30 05:43] LABS: EGFR Non-African American 88.7 (>60)
[2017-11-30 07:25] LABS: ABS Basophils 0 10^3/ul (0-0.2); ABS Eosinophils 0.1 10^3/ul (0-0.6); ABS Lymphocytes 1.6 10^3/ul (1.0-4.8); ABS Monocytes 1.1 10^3/ul (0-0.8); ABS Neutrophils 9.1 10^3/ul (1.5-7.7); ABS Nucleated RBC 0 10^3/ul; Hematocrit 35 % (42-52); Hemoglobin 11.8 g/dl (14.0-18.0); Lymphocyte % 13.7 % (25-47); Mean Corpuscular HGB Conc 34 g/dl (31-36); Mean Corpuscular Hemoglobin 34 pg (27-31); Mean Corpuscular Volume 98 fL (80-94); Mean Platelet Volume 9.6 um3 (7.4-10.4); Nucleated Red Blood Cells % 0; Platelet Count 131 10^3/ul (150-450); Red Blood Count 3.51 10^6/ul (4.00-5.40); Red Cell Distribution Width 13 % (10.5-15)
[2017-11-30 08:20] VITALS: BP 147/79
[2017-11-30] MEDS: Labetalol TAB* 100 MG PO SCH (08:59)
--- NOTE | 2017-12-01 01:43 | DS ---
CC: Dr. Teagan Mistry; Dr. Tushar Baker * DISCHARGE SUMMARY: DATE OF ADMISSION: 11/27/17. DATE OF DISCHARGE: 11/30/17. PRIMARY CARE PROVIDER: Dr. Teagan Mistry MY ATTENDING WHILE IN THE HOSPITAL: Dr. Man Adkins.* (DICTATED BY ILDA SAUNDERS) CONSULTING WELDER/FABRICATOR: Dr. Tushar Baker. PRIMARY DISCHARGE DIAGNOSIS: Acute-on chronic pancreatitis. SECONDARY DISCHARGE DIAGNOSES: 1. Hypertension. 2. Hyperlipidemia. 3. Ascending aortic aneurysm. 4. Diet-controlled diabetes mellitus. STUDIES DONE WHILE IN THE HOSPITAL: Electrocardiogram from 11/27/17, shows normal sinus rhythm, no ST-segment abnormalities except for inverted T-waves in lead III, and also inverted P-waves in lead III. Rate of 59, QTC 447. Left axis deviation. No hypertrophy, enlargement. No other abnormalities. Chest x-ray from 11/27/17, read as no active cardiopulmonary disease. Chest thorax CTA from 11/27/17, read as aneurysmal dilatation of the ascending thoracic aorta up to 4.3 transversely without intimal flap to suggest dissection , atherosclerosis, pancreatic calcifications with peripancreatic inflammatory change suggestive of acute-on chronic pancreatitis. Abdomen ultrasound from 05/05 read as primarily fatty infiltration of liver, dilated pancreatic duct. Evaluation of pancreas limited by overlying bowel gas on sonography. There is persistent clinical concern for pancreatic pathology, consider further evaluation with contrast enhanced CT or MRI of the abdomen. MRCP from 11/28/17 , read as atrophic pancreas, stigmata of chronic pancreatitis based on correlation with CT documenting multiple pancreatic calcifications, stigmata of superimposed acute pancreatitis, peripancreatic inflammatory change at the level of pancreatic head and uncinate process. Small volume of non-loculated peripancreatic fluid. No suspicious focal pancreatic lesions, negative for biliary dilation or common bile duct stone. There is trace perihepatic ascites. MEDICATIONS AT DISCHARGE: 1. Rosuvastatin 5 mg p.o. Friday and Friday. 2. Lisinopril 40 mg p.o. q.p.m. 3. Aspirin 81 mg p.o. q.p.m. 4. Amlodipine 10 mg q.p.m. 5. Multivitamin 1 tab hull builder. 6. Labetalol 100 mg p.o. b.i.d. 7. Ketoconazole cream 1 application topical daily as needed. 8. Tylenol 650 mg p.o. q.6 hours as needed. 9. Bumetanide 0.5 mg p.o. daily. Medication discontinued on discharge: 1. Torsemide 10 mg p.o. daily. HOSPITAL COURSE: This is a brief summary of the patient's presentation. For more details, please see the history and physical from Zhane Hunter NP on . In brief, the patient is an 82-year-old male with a past medical history significant for the above as well as previous alcohol abuse in his earlier years who presented to the emergency department with sudden onset of left-sided chest pain without shortness of breath, diaphoresis. The patient had no inciting factors, no provoking factors. The patient was nauseous and vomited once. The patient has never had anything like this before including having no known history of pancreatitis or gallbladder disease. The patient came to the emergency department and had imaging evaluation as above, showing no dissection of his thoracic aorta, aortic aneurysm, but evidence of acute-on chronic pancreatitis, which was also present on 2014 CT evaluation. The patient had a lipase of 1227. The patient's initial laboratory evaluation was also notable for a total bilirubin of 1.2 and a glucose of 190. The patient had 3 negative troponins and LDL cholesterol of 89 and a triglyceride level of 93. The patient was admitted to the hospital, placed on NPO diet, given fluids and pain control. The patient's pain decreased significantly over his first day in the hospital. The patient was seen in consultation by Dr. Tushar Baker who believes this chronic pancreatitis was due to alcohol abuse when the patient was younger, however, it was noted to be abnormal and the patient had never had known episode of pancreatitis before. The patient's torsemide was discontinued due to case reports of them causing pancreatitis. The patient had evaluation of his gallbladder as above showing no evidence of gallstones causing his pancreatitis. The patient has also had no other symptoms of chronic pancreatitis insufficiency. The patient also had no obvious cause of his current episode of pancreatitis. No further laboratory or imaging evaluation was recommended. The patient on 11/29/17, had his temperatures up to 100.1 degrees Fahrenheit without any other symptoms. The patient's white blood cell count also elevated from initially being at 7.9 going up to 14.8. The patient' s lipase trended down from 1227 initially to 50 on 11/29/17. 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 The patient's pain diminished to almost non- existent. On 11/30/17, the patient's white blood cell count dropped from 14.8 to 12.0. The patient was able to tolerate initially a clear liquid diet on 11/28/17, a soft diet on 11/30/17 and was continued on this at home with a fat restriction to avoid provoking further episodes of pancreatitis. The patient was stable now for discharge on 11/30/17. PHYSICAL EXAMINATION ON DAY OF DISCHARGE: General: The patient is an 82-year- old male, who appears stated age and sitting comfortably in bed, in no acute distress. Vital Signs: At the time of discharge, temperature 98.4, pulse rate 70, respiratory rate 20, oxygen saturation 98% on room air, blood pressure 147/ 79. HEENT: Head: Normocephalic, atraumatic. Sclerae are anicteric. No conjunctival injection. Nasal mucosa moist. Oral mucosa moist. No pharyngeal erythema, discharge or exudate. Neck: Supple, nontender. No lymphadenopathy. No carotid bruit auscultated. No JVD. Cardiac: Regular rate and rhythm. No clicks, murmurs, gallops or rubs. Pulses are 2+ bilaterally in dorsalis pedis, posterior tibialis, and radial areas. Trace bilateral lower extremity edema noted. Respiratory: Clear to auscultation bilaterally. No wheezes, rales or rhonchi. Good air exchange bilaterally. Abdomen: Soft, nondistended. Slight tenderness to palpation over the bilateral upper quadrants with no rebound or guarding. No hepatosplenomegaly. No abdominal bruits auscultated. No hepatojugular reflex. Genitourinary: No suprapubic or CVA tenderness. Skin : Clean, dry, intact. No rash. Neurologic: Cranial nerves II through XII grossly intact. No focal deficits. Alert and oriented x3. Psychiatric: Pleasant and cooperative. LABORATORY DATA: On day of discharge, white blood cell count 12.0, hemoglobin 11.8, platelet count 131. Sodium 138, potassium 3.7, chloride 107, carbon dioxide 25, anion gap 7, BUN 10, creatinine 0.83, glucose 136, calcium 8.2, magnesium 2.3, total bilirubin 1.7, AST 13, ALT 13, alkaline phosphatase 64, total protein 5.8. BUN 3.3, globulin 2.5. Urine and blood cultures from , were negative. DISCHARGE PLAN: The patient will be discharged to home. The patient's pancreatitis has currently resolved almost entirely. The patient should maintain a low fat diet and use [id number] treatments for pain control. The patient was not requiring opioid pain medications for the last 2 days of his hospitalization. The patient should follow up with his primary care provider with whom he will meet for general medical management as well as monitoring his chronic medical conditions including prediabetes and hypertension. The patient's furosemide was changed to Bumex due to concerns for torsemide having caused pancreatitis in post marketing reports, which is not the case for Bumex. If the patient does not tolerate Bumex, torsemide is an unlikely cause of his pancreatitis. The patient should follow up with Dr. Baker of Gastroenterology within 1 month for monitoring of his chronic pancreatitis as well as further evaluation for possible underlying causes of his pancreatitis. The patient should return to the hospital for alarming symptoms such as severe abdominal pain, chest pain, shortness of breath. The patient should engage in activity as tolerated and to have a heart-healthy, low- fat diet as above. TIME SPENT: Approximately 60 minutes was spent on this discharge, 30 of which was spent [id number] with the patient obtaining history and physical and discussing treatment plan. ILDA SAUNDERS [id number]/[facility] #: [id number] QUAN
== END 2017-11-30 11:52 | disposition home or self-care (01) | DRG 439 ==
LOC: ED 08:50 → MEDTELE 11:48 → OBSVTOIN 11-28 10:39
PROVIDERS: ADMIT Internal Medicine; ATTEND Internal Medicine
DX: K85.90 Acute pancreatitis without necrosis or infection, unspecified (principal); R18.8 Other ascites; K86.1 Other chronic pancreatitis; I10 Essential (primary) hypertension; E78.5 Hyperlipidemia, unspecified; E11.9 Type 2 diabetes mellitus without complications; R00.1 Bradycardia, unspecified; I71.6 Thoracoabdominal aortic aneurysm, without rupture; R55 Syncope and collapse; E66.3 Overweight; K86.89 Other specified diseases of pancreas; E80.4 Gilbert syndrome; K76.0 Fatty (change of) liver, not elsewhere classified; Z79.82 Long term (current) use of aspirin; Z82.49 Family history of ischemic heart disease and other diseases of the circulatory system; Z72.89 Other problems related to lifestyle; Z87.891 Personal history of nicotine dependence; Z68.32 Body mass index [BMI] 32.0-32.9, adult
CPT/HCPCS: 36415; 71045; 71275; 74183; 76376; 76705; 80048; 80053; 80061; 81003; 81015; 82247; 82248; 83605; 83690; 83735; 84484; 85025; 87040; 93005; 99285; A9270-GY; A9579; G0378; J1170; J1644; J2405; Q9967

== ENCOUNTER 2020-07-13 09:16 | Observation (INO) ==
[2020-07-13 09:52] LABS: ABS Basophils 0.1 10^3/ul (0-0.2); ABS Eosinophils 0.1 10^3/ul (0-0.6); ABS Lymphocytes 1.5 10^3/ul (1.0-4.8); ABS Monocytes 0.4 10^3/ul (0-0.8); ABS Neutrophils 4.3 10^3/ul (1.5-7.7); Eosinophil % 1.9 %; Hematocrit 37 % (42-52); Hemoglobin 12.6 g/dL (14.0-18.0); Lymphocyte % 23.9 %; Mean Corpuscular HGB Conc 34 g/dL (31-36); Mean Corpuscular Hemoglobin 33 pg (27-31); Mean Corpuscular Volume 98 fL (80-94); Mean Platelet Volume 8.8 fL (7.4-10.4); Platelet Count 166 10^3/uL (150-450); Red Blood Count 3.77 10^6 /uL (4.18-5.48); Red Cell Distribution Width 13 % (10-15); White Blood Count 6.5 10^3/uL (3.5-10.8)
[2020-07-13 10:12] LABS: Troponin I 0.01 ng/mL (<0.03)
[2020-07-13 10:13] LABS: Albumin 4.2 g/dL (3.2-5.2); Albumin/Globulin Ratio 1.8 (1-3); BUN/Creatinine Ratio 13.2 (8-20); Calcium 8.9 mg/dL (8.6-10.3); EGFR Non-African American 79.4 (>60); Globulin 2.3 g/dL (2-4); Potassium 3.9 mmol/L (3.5-5.0); Total Bilirubin 1.1 mg/dL (0.2-1.0); Total Protein 6.5 g/dL (6.4-8.9)
[2020-07-13] MEDS ORDERED: Iohexol 350 (CONTRAST) 500 ML MDV IV ONE (10:24)
[2020-07-13 12:56] LABS: HDL Cholesterol 50.3 mg/dL
[2020-07-13] MEDS ORDERED: Dextrose 50% Syringe 50 ml 25 GM/50 ML SYRINGE IV PUSH PRN (13:00)
[2020-07-14] MEDS ORDERED: Aspirin EC 81 mg TAB.EC (enteric coated) PO SCH (09:00)
[2020-07-14 10:36] LABS: ABS Basophils 0.1 10^3/ul (0-0.2); ABS Eosinophils 0.1 10^3/ul (0-0.6); ABS Lymphocytes 1.2 10^3/ul (1.0-4.8); ABS Monocytes 0.5 10^3/ul (0-0.8); ABS Neutrophils 4.4 10^3/ul (1.5-7.7); Eosinophil % 2.1 %; Hematocrit 37 % (42-52); Hemoglobin 12.3 g/dL (14.0-18.0); Lymphocyte % 19.5 %; Mean Corpuscular HGB Conc 33 g/dL (31-36); Mean Corpuscular Hemoglobin 33 pg (27-31); Mean Corpuscular Volume 99 fL (80-94); Mean Platelet Volume 8.7 fL (7.4-10.4); Platelet Count 159 10^3/uL (150-450); Red Blood Count 3.74 10^6 /uL (4.18-5.48); Red Cell Distribution Width 13 % (10-15); White Blood Count 6.3 10^3/uL (3.5-10.8)
[2020-07-14 10:45] VITALS: BP 135/76
[2020-07-14 10:54] LABS: BUN/Creatinine Ratio 14.4 (8-20); EGFR African American 89.2 (>60); EGFR Non-African American 73.7 (>60); Potassium 4.1 mmol/L (3.5-5.0)
== END 2020-07-14 12:25 | disposition home or self-care (01) ==
LOC: MEDTELE 09:16 → ED 09:16 → MEDTELE 14:15
PROVIDERS: ADMIT Internal Medicine; ATTEND Internal Medicine